=== PATIENT | female | born 1970 ===

== ENCOUNTER → 2017-09-15 | Outpatient (CLI) | payer OTHER, SELFPAY ==
[~2017-09-15] MED LIST: LORA2 PO
[2017-09-17 14:10] LABS: HPV 16 Negative (Negative); HPV 18 Negative (Negative); HPV OTHER HR TYPES Negative (Negative)
== END ==
LOC: LAB SHORT 15:23 → LAB 15:23
PROVIDERS: Registered Nurse Community Health
DX: Z12.4 Encounter for screening for malignant neoplasm of cervix (principal); N89.8 Other specified noninflammatory disorders of vagina
CPT/HCPCS: 87070; 87205; 87624; G0123

== ENCOUNTER 2021-08-05 15:14 | Emergency (ER) | payer OTHER ==
[~2021-08-05] VITALS: Ht 160 cm; Wt 77.1 kg
[2021-08-05] MEDS ORDERED: HYDHCL25 PO (16:47)
[2021-08-05] MEDS ORDERED: MELATONIN5 M4 PO (16:47)
== END 2021-08-05 17:03 | disposition home or self-care (01) ==
LOC: ER 15:14
DX: F41.9 Anxiety disorder, unspecified (principal); G47.00 Insomnia, unspecified
CPT/HCPCS: A9270